=== PATIENT | male | born 1970 | race Caucasian/White ===

== ENCOUNTER 2017-07-08 16:51 | Emergency (ER) | payer BC ==
[~2017-07-08] VITALS: Ht 180.3 cm; Wt 111.1 kg
[~2017-07-08 16:51] MED LIST: DICY20TA57; ENAL20TA PO; HYDR-2997 PO; HYDR-757 PO; MMT17NA NS; NF-ESOM40C PO; OMEP20CA6; ONDAN4ODT PO; SULF1TAB35 PO
--- OUTSIDE RECORDS SUMMARY | 2017-07-08 16:56 | XMS REPORT | Continuity of Care Document ---
Author Author [facility] Organization [facility] Address Unknown Phone Unavailable Allergies Active Description Code Type Severity Reaction Onset Reported/Identified Relationship to Patient Clinical Status Yes NKANo Known Allergies NKA Miscellaneous Allergy Mild N/A 12/07/2008 Medications There is no data. Problems Date Dx Coded Attending Type Code Diagnosis Diagnosed By 06/08/2014 Ot 790.5 06/08/2014 Ot 787.02 06/08/2014 Ot 789.00 06/08/2014 Ot 790.6 06/08/2014 Ot 574.20 06/08/2014 Ot V72.63 06/08/2014 Ot V74.8 06/08/2014 Ot 789.02 06/08/2014 Ot V45.89 06/08/2014 Ot 603.9 06/08/2014 Ot 595.9 06/08/2014 Ot V72.83 06/08/2014 Ot V74.8 06/08/2014 Ot 595.9 06/08/2014 JAI HOPSON, ARISTIDES R Ot 785.1 06/08/2014 JAI HOPSON, ARISTIDES R Ot 786.59 06/23/2014 JAI HOPSON, ARISTIDES R Ot 784.92 12/13/2014 Ot 574.20 12/13/2014 Ot V72.63 12/13/2014 Ot V74.8 12/13/2014 Ot 789.02 12/13/2014 Ot V45.89 12/13/2014 Ot 603.9 12/13/2014 Ot 595.9 12/13/2014 Ot V72.83 12/13/2014 Ot V74.8 12/13/2014 Ot 595.9 12/13/2014 JAI HOPSON, ARISTIDES R Ot 785.1 12/13/2014 JAI HOPSON, ARISTIDES R Ot 786.59 12/13/2014 JAI HOPSON, ARISTIDES R Ot 784.92 06/21/2015 Ot 603.9 06/21/2015 Ot 595.9 06/21/2015 Ot V72.83 06/21/2015 Ot V74.8 06/21/2015 Ot 595.9 06/21/2015 ARISTIDES VERGARA MD Ot 785.1 06/21/2015 JAI HOPSON, ARISTIDES R Ot 786.59 06/21/2015 ARISTIDES VERGARA MD Ot 784.92 08/28/2015 Ot 603.9 HYDROCELE NOS 08/28/2015 Ot 595.9 CYSTITIS NOS 08/28/2015 Ot V72.83 EXAM PRE- OPERATIVE NEC 08/28/2015 Ot V74.8 SCREEN- BACTERIAL DIS NEC 08/28/2015 Ot 595.9 CYSTITIS NOS 08/28/2015 ARISTIDES VERGARA MD Ot 785.1 PALPITATIONS 08/28/2015 ARISTIDES VERGARA MD Ot 786.59 CHEST PAIN NEC 08/28/2015 ARISTIDES VERGARA MD Ot 784.92 JAW PAIN 08/28/2015 ARISTIDES VERGARA MD Ot M26.62 ARTHRALGIA OF TEMPOROMANDIBULAR JOINT 10/07/2015 GRACY LAWS APRN Ot N50.8 OTHER SPECIFIED DISORDERS OF MALE GENITA 10/09/2015 GRACY LAWS FIELD MACHINIST Ot N50.8 OTHER SPECIFIED DISORDERS OF MALE GENITA 03/13/2016 Ot 603.9 HYDROCELE NOS 03/13/2016 Ot 595.9 CYSTITIS NOS 03/13/2016 Ot V72.83 EXAM PRE- OPERATIVE NEC 03/13/2016 Ot V74.8 SCREEN- BACTERIAL DIS NEC 03/13/2016 Ot 595.9 CYSTITIS NOS 03/13/2016 ARISTIDES VERGARA MD Ot 785.1 PALPITATIONS 03/13/2016 ARISTIDES VERGARA MD Ot 786.59 CHEST PAIN NEC 03/13/2016 ARISTIDES VERGARA MD Ot 784.92 JAW PAIN 03/13/2016 ARISTIDES VERGARA MD Ot M26.62 ARTHRALGIA OF TEMPOROMANDIBULAR JOINT 10/21/2016 Ot 603.9 HYDROCELE NOS 10/21/2016 Ot 595.9 CYSTITIS NOS 10/21/2016 Ot V72.83 EXAM PRE- OPERATIVE NEC 10/21/2016 Ot V74.8 SCREEN- BACTERIAL DIS NEC 10/21/2016 Ot 595.9 CYSTITIS NOS 10/21/2016 ARISTIDES VERGARA MD Ot 785.1 PALPITATIONS 10/21/2016 ARISTIDES VERGARA MD Ot 786.59 CHEST PAIN NEC 10/21/2016 ARISTIDES VERGARA MD Ot 784.92 JAW PAIN 10/21/2016 ARISTIDES VERGARA MD Ot M26.62 ARTHRALGIA OF TEMPOROMANDIBULAR JOINT Procedures There is no data. Results There is no data. Encounters ACCT No. Visit Date/Time Discharge Status Pt. Type Provider Facility Loc./Unit Complaint [id number] 10/07/2015 20:22:00 10/07/2015 22:32:00 DIS Emergency GRACY LAWS APRN [facility] ER GROIN PAIN [id number] 06/21/2015 07:42:00 06/21/2015 23:59:59 CLS Outpatient ARISTIDES VERGARA MD [facility] RAD PERSISTENT PAIN [id number] 06/08/2014 14:28:00 06/08/2014 23:59:59 CLS Outpatient ARISTIDES VERGARA MD [facility] RAD PAIN LT TMJ RAIDIATING TO EAR [id number] 10/01/2013 13:38:00 10/01/2013 23:59:59 CLS Outpatient ARISTIDES VERGARA MD [facility] RAD PECTORAL PAIN [id number] 05/13/2013 14:22:00 05/13/2013 23:59:59 CLS Outpatient ARISTIDES VERGARA MD [facility] CARD PALPITATION [id number] 09/11/2012 08:20:00 09/11/2012 23:59:59 CLS Outpatient [id number] 06/08/2014 14:28:00 Document Registration [id number] 06/08/2014 14:28:00 Document Registration [id number] 06/08/2014 14:28:00 Document Registration [id number] 09/18/2011 10:10:00 Document Registration [id number] 09/17/2011 13:55:00 Document Registration [id number] 08/13/2011 11:57:00 Document Registration [id number] 12/19/2009 15:28:00 Document Registration [id number] 07/27/2009 08:02:00 Document Registration [id number] 05/31/2009 10:05:00 Document Registration [id number] 05/11/2009 09:19:00 Document Registration
[2017-07-08 17:15] LABS: BASOPHILS % (AUTO) 0 % (0-10); EOSINOPHILS # (AUTO) 0.3 10^3/uL (0.0-0.3); EOSINOPHILS % (AUTO) 4 % (0-10); HEMATOCRIT 45 % (40-54); HEMOGLOBIN 15.9 G/DL (13.3-17.7); LYMPHOCYTES # (AUTO) 1.8 X 10^3 (1.0-4.0); LYMPHOCYTES % (AUTO) 21 % (12-44); MEAN CORPUSCULAR HEMOGLOBIN 30 PG (25-34); MEAN CORPUSCULAR HGB CONC 36 G/DL (32-36); MEAN CORPUSCULAR VOLUME 84 FL (80-99); MONOCYTES # (AUTO) 0.6 X 10^3 (0.0-1.0); MONOCYTES % (AUTO) 7 % (0-12); NEUTROPHILS # (AUTO) 6.1 X 10^3 (1.8-7.8); NEUTROPHILS % (AUTO) 68 % (42-75); PLATELET COUNT 313 10^3/uL (130-400); RED BLOOD COUNT 5.33 10^6/uL (4.35-5.85); RED CELL DISTRIBUTION WIDTH 12.8 % (10.0-14.5); WHITE BLOOD COUNT 8.9 10^3/uL (4.3-11.0)
[2017-07-08] MEDS ORDERED: ASPIRIN 81 MG CHEW (CHILDREN'S ASA) PO ONE (17:15)
[2017-07-08] MEDS ORDERED: NITROGLYCERIN 0.4 MG SL TABS BTL 25'S SL PRN (17:15)
[2017-07-08 17:26] LABS: INR 0.9 (0.8-1.4); PROTHROMBIN TIME PATIENT 12.2 SEC (12.2-14.7)
--- NOTE | 2017-07-08 17:28 | Diagnostic Imaging Report ---
INDICATION: Chest pain. TECHNIQUE: Portable chest at 5:18 p.m. FINDINGS: Heart and mediastinum are normal. Lungs are clear. There are no effusions or pneumothoraces. IMPRESSION: Negative chest. Dictated by: Dictated on workstation # [id number]
[2017-07-08] MEDS ORDERED: LIDOCAINE 2% VISCOUS 15 ML UDC PO ONE (17:30)
[2017-07-08] MEDS ORDERED: ANTACID SUSP 30 ML UDC (MYLANTA) PO ONE (17:30)
[2017-07-08 17:36] LABS: ALANINE AMINOTRANSFERASE 30 U/L (0-55); ALBUMIN 4.5 GM/DL (3.2-4.5); ALKALINE PHOSPHATASE 60 U/L (40-136); BILIRUBIN,TOTAL 0.4 MG/DL (0.1-1.0); BUN/CREATININE RATIO 17; CALCIUM 9.2 MG/DL (8.5-10.1); CARBON DIOXIDE 25 MMOL/L (21-32); CHLORIDE 107 MMOL/L (98-107); CREATININE SERUM 0.88 MG/DL (0.60-1.30); GFR ESTIMATED > 60; GLUCOSE 91 MG/DL (70-105); MAGNESIUM 2.3 MG/DL (1.8-2.4); POTASSIUM 3.9 MMOL/L (3.6-5.0); SODIUM 140 MMOL/L (135-145); TOTAL PROTEIN 7.2 GM/DL (6.4-8.2)
--- NOTE | 2017-07-08 17:40 | ED Chest Pain ---
General Chief Complaint: Chest Pain Stated Complaint: CHEST PAIN Nursing Triage Note: PT TO ED FROM [facility]. Nursing Sepsis Screen: No Definite Risk Source: patient Exam Limitations: no limitations (ERIKA FERREIRA MD) History of Present Illness Date Seen by Provider: Jul 08, 2017 Time Seen by Provider: 16:57 Initial Comments This 46-year-old gentleman presents to the emergency room as referred by the [facility] for chest pain. He complains of intermittent mild chest pain for the past 3 days. However, the pain became much more intense at 15:30 today. He rates the pain 5/10 at its worst. It is now 2/10. The pain is a burning sensation and is central beneath the sternum and to the left of the sternum. He does have a history of hiatal hernia and acid reflux. He took Nexium this morning which did not resolve the pain. She denies any associated symptoms such as shortness of breath, nausea/vomiting, lightheadedness, fever, or cough. He notes it may be a little worse with deep breathing but he has not identified any other exacerbating or alleviating factors. He denies any known history of heart disease. He does not smoke and only occasionally drinks alcohol. He does have a family history of heart disease in his father who had bypass surgery in his 60s. His father also had atrial fibrillation. Patient also has a recurrent rash on his torso which she treats with triamcinolone cream. (ERIKA FERREIRA MD) Allergies and Home Medications Allergies Coded Allergies: No Known Allergies (Unverified Allergy, Mild, 12/07/08) Home Medications Enalapril Maleate 20 Mg Tablet, 20 MG PO DAILY, (Reported) Hydrocodone/Acetaminophen 1 Each Tablet, 1 EACH PO Q4H PRN for PAIN Prescribed by: GRACY LAWS on 10/07/152212 Mometasone Furoate 17 Gm [place], 1 SPRAY NS UD, (Reported) Sulfamethoxazole/Trimethoprim 1 Each Tablet, 1 EACH PO BID Prescribed by: GRACY LAWS on 10/07/15 213 Patient Home Medication List Home Medication List Reviewed: Yes (ERIKA FERREIRA MD) Home Medication List Reviewed: Yes (ROSA MAZARIEGOS MD) Review of Systems Constitutional: no symptoms reported EENTM: No Symptoms Reported Respiratory: See HPI Cardiovascular: See HPI Gastrointestinal: See HPI Genitourinary: No Symptoms Reported Musculoskeletal: no symptoms reported Skin: no symptoms reported Psychiatric/Neurological: No Symptoms Reported Endocrine: No Symptoms Reported (ERIKA FERREIRA MD) Past Eovykfe-Lfjxop-Annuit Hx Patient Social History Alcohol Use: Occasionally Uses Recreational Drug Use: No Smoking Status: Never a Smoker Recent Foreign Travel: No Contact w/Someone Who Travel: No Recent Infectious Disease Expo: No (ERIKA FERREIRA MD) Seasonal Allergies Seasonal Allergies: Yes (ERIKA FERREIRA MD) Surgeries History of Surgeries: Yes Surgeries: Adenoidectomy, Gallbladder, Tonsillectomy (ERIKA FERREIRA MD) Respiratory History of Respiratory Disorde: No (ERIKA FERREIRA MD) Cardiovascular History of Cardiac Disorders: Yes Cardiac Disorders: Hypertension (ERIKA FERREIRA MD) Neurological History of Neurological Disord: No (ERIKA FERREIRA MD) Reproductive System Hx Reproductive Disorders: No Sexually Transmitted Disease: No (ERIKA FERREIRA MD) Genitourinary History of Genitourinary Disor: No (ERIKA FERREIRA MD) Gastrointestinal History of Gastrointestinal Di: Yes Gastrointestinal Disorders: Hiatal Hernia, Irritable Bowel (ERIKA FERREIRA MD) Musculoskeletal History of Musculoskeletal Dis: No (ERIKA FERREIRA MD) Endocrine History of Endocrine Disorders: No (ERIKA FERREIRA MD) HEENT History of HEENT Disorders: No (ERIKA FERREIRA MD) Cancer History of Cancer: No (ERIKA FERREIRA MD) Psychosocial History of Psychiatric Problem: No (ERIKA FERREIRA MD) Integumentary History of Skin or Integumenta: Yes (Recurrent rash) (ERIKA FERREIRA MD) Family Medical History Significant Family History: Heart Disease (A-Fib), CAD Over 55 Years Old (ERIKA FERREIRA MD) Physical Exam Vital Signs Vital Signs - First Documented 07/08/17 16:55 Temp 98.1 Pulse 71 Resp 18 B/P (MAP) 131/91 (104) Pulse Ox 96 O2 Delivery Room Air (ROSA MAZARIEGOS MD) Vital Signs Capillary Refill : Less Than 3 Seconds (ERIKA FERREIRA MD) General Appearance: No Apparent Distress, WD/WN HEENT: PERRL/EOMI, Normal ENT Inspection Neck: Normal Inspection Respiratory: Chest Non Tender, Lungs Clear, Normal Breath Sounds, No Accessory Muscle Use, No Respiratory Distress Cardiovascular: Regular Rate, Rhythm, No Edema, No Murmur, Normal Peripheral Pulses Gastrointestinal: Normal Bowel Sounds, Non Tender, Soft Extremity: Normal Capillary Refill, Normal Inspection, Non Tender, No Calf Tenderness, No Pedal Edema Neurologic/Psychiatric: Alert, Oriented x3, No Motor/Sensory Deficits, Normal Mood/Affect, central supply tech II-XII Norm as Tested Skin: Normal Color, Warm/Dry (ERIKA FERREIRA MD) Progress/Results/Core Measures Results/Orders Lab Results Laboratory Tests Test 07/08/17 17:09 07/08/17 20:09 Range/Units White Blood Count 8.9 4.3-11.0 10^3/uL Red Blood Count 5.33 4.35-5.85 10^6/uL Hemoglobin 15.9 13.3-17.7 G/DL Hematocrit 45 40-54 % Mean Corpuscular Volume 84 80-99 FL Mean Corpuscular Hemoglobin 30 25-34 PG Mean Corpuscular Hemoglobin Concent 36 32-36 G/DL Red Cell Distribution Width 12.8 10.0-14.5 % Platelet Count 313 130-400 10^3/uL Mean Platelet Volume 10.0 7.4-10.4 FL Neutrophils (%) (Auto) 68 42-75 % Lymphocytes (%) (Auto) 21 12-44 % Monocytes (%) (Auto) 7 0-12 % Eosinophils (%) (Auto) 4 0-10 % Basophils (%) (Auto) 0 0-10 % Neutrophils # (Auto) 6.1 1.8-7.8 X 10^3 Lymphocytes # (Auto) 1.8 1.0-4.0 X 10^3 Monocytes # (Auto) 0.6 0.0-1.0 X 10^3 Eosinophils # (Auto) 0.3 0.0-0.3 10^3/uL Basophils # (Auto) 0.0 0.0-0.1 10^3/uL Prothrombin Time 12.2 12.2-14.7 SEC INR Comment 0.9 0.8-1.4 Activated Partial Thromboplast Time 26 24-35 SEC Sodium Level 140 135-145 MMOL/L Potassium Level 3.9 3.6-5.0 MMOL/L Chloride Level 107 98-107 MMOL/L Carbon Dioxide Level 25 21-32 MMOL/L Anion Gap 8 5-14 MMOL/L Blood Urea Nitrogen 15 7-18 MG/DL Creatinine 0.88 0.60-1.30 MG/DL Estimat Glomerular Filtration Rate > 60 BUN/Creatinine Ratio 17 Glucose Level 91 70-105 MG/DL Calcium Level 9.2 8.5-10.1 MG/DL Magnesium Level 2.3 1.8-2.4 MG/DL Total Bilirubin 0.4 0.1-1.0 MG/DL Aspartate Amino Transf (AST/SGOT) 25 5-34 U/L Alanine Aminotransferase (ALT/SGPT) 30 0-55 U/L Alkaline Phosphatase 60 40-136 U/L Myoglobin 31.8 27.1 10.0-92.0 NG/ML Troponin I < 0.30 < 0.30 <0.30 NG/ML Total Protein 7.2 6.4-8.2 GM/DL Albumin 4.5 3.2-4.5 GM/DL (ROSA MAZARIEGOS MD) My Orders Orders - ROSA MAZARIEGOS MD Ekg Tracing (07/08/17 20:41) (ROSA MAZARIEGOS MD) Medications Given in ED Current Medications Medications Dose Ordered Sig/Leo Route Start Time Stop Time Status Last Admin Dose Admin Al Hydrox/Mg Hydrox/Simethicone 30 ml ONCE ONCE PO 07/08/17 17:30 07/08/17 17:31 DC 07/08/17 17:52 30 ML Aspirin 324 mg ONCE ONCE PO 07/08/17 17:15 07/08/17 17:16 DC 07/08/17 17:16 324 MG Lidocaine HCl 15 ml ONCE ONCE PO 07/08/17 17:30 07/08/17 17:31 DC 07/08/17 17:52 15 ML Nitroglycerin 0.4 mg UD PRN SL 07/08/17 17:15 07/08/17 17:14 0.4 MG (ROSA MAZARIEGOS MD) Vital Signs/I&O Vital Sign - Last 12Hours 07/08/17 16:55 Temp 98.1 Pulse 71 Resp 18 B/P (MAP) 131/91 (104) Pulse Ox 96 O2 Delivery Room Air (ROSA MAZARIEGOS MD) Blood Pressure Mean: 104 Progress Note : Time: 18:10 Progress Note Workup in the emergency room was unremarkable to this point. Patient's pain was dissipating. He was given a GI cocktail and had no pain afterward, but his pain was minimal prior to the GI cocktail anyway. I discussed options with the patient including admission versus cardiac rule out and outpatient follow-up. Patient is agreeable. A troponin will be drawn at 20:00 and patient will be dismissed home as long as troponin is negative and he remains pain-free. Care of this patient is being transitioned to Dr. Mazariegos at this time. (ERIKA FERREIRA MD) Progress Note : Progress Note 1820: I have assumed care of the patient from Dr. Lomeli pending repeat laboratory testing. Patient presents with intermittent chest pain over the last couple of weeks. He believes that it may be related to reflux disease but was worse today starting at about 330 p.m. Pain is currently gone. He did receive GI cocktail earlier and his minimal pain at that time has completely resolved since. We will recheck troponin and myoglobin as well as EKG at nearly 6 are marked. These are negative and patient can be discharged. 2042: Repeat EKG done. Repeat troponin and myoglobin negative. I will discuss the case with Dr. Quiles and have follow-up. Discharged home with return precautions. Patient verbalize understanding instructions and agreement with plan. (ROSA MAZARIEGOS MD) ECG Initial ECG Impression Date: Jul 08, 2017 Initial ECG Impression Time: 16:57 Initial ECG Rate: 70 Initial ECG Rhythm: Normal Sinus Initial ECG Intervals: Normal Initial ECG Impression: Normal Comment Normal sinus rhythm with no ST elevation or depression. No abnormal intervals or axis deviation. (ERIKA FERREIRA MD) EKG : EKG Time: 20:43 Rate: 67 Rhythm: Normal Sinus ECG Comparisson: Unchanged ECG Impression: Normal Comment Sinus rhythm with normal axis. No evidence of ST elevation OR. No changes from previous done earlier today. Interpreted by me. (ROSA MAZARIEGOS MD) Diagnostic Imaging Diagonstic Imaging: Xray Plain Films/CT/US/NM/MRI: chest Comments Chest x-ray viewed by me and report reviewed. See report below: NAME: [facility] REC#: [id number] PT STATUS: REG ER : 1970 PHYSICIAN: ERIKA FERREIRA MD ADMIT DATE: 07/08/17/ER Draft Date of Exam:07/08/17 CHEST 1 VIEW, AP/PA ONLY INDICATION: Chest pain. TECHNIQUE: Portable chest at 5:18 p.m. FINDINGS: Heart and mediastinum are normal. Lungs are clear. There are no effusions or pneumothoraces. IMPRESSION: Negative chest. Dictated on workstation # [id number] Dict: 07/08/17 1722 Trans: 07/08/17 1728 [id number] [id number] Interpreted by: ROSA JUSTICE MD (ERIKA FERREIRA MD) Departure Impression Impression: Primary Impression: Chest pain Qualified Codes: R07.9 - Chest pain, unspecified Disposition: HOME, SELF-CARE Condition: Improved Departure-Patient Inst. Decision time for Depature: 20:53 (ROSA MAZARIEGOS MD) Referrals: PALMIRA QUILES MD [facility] ARISTIDES VERGARA MD (PCP/Family) Primary Care Physician Patient Instructions: Chest Pain (DC) Add. Discharge Instructions: All discharge instructions reviewed with patient and/or family. Voiced understanding. Continue home medications as directed. You should start a chewable baby aspirin daily. Call Dr. Quiles's office in the morning and he will see you same day. Let them know that the case was discussed with him and he wants to see you same day and they will schedule you. Return for worse pain, fever, vomiting, weakness, breathing problems or other concerns as needed. Copy Copies To 1: [facility]ES [facility] Jul 08, 2017 17:40 ROSA MAZARIEGOS MD Jul 08, 2017 20:41
[2017-07-08 17:43] LABS: MYOGLOBIN SERUM 31.8 NG/ML (10.0-92.0)
[2017-07-08 20:37] LABS: MYOGLOBIN SERUM 27.1 NG/ML (10.0-92.0)
[2017-07-08 21:00] VITALS: BP 136/88
== END 2017-07-08 21:00 | disposition home or self-care (01) ==
LOC: EDUNIT# 16:51 → ER 16:52
DX: R07.89 Other chest pain (principal); K21.9 Gastro-esophageal reflux disease without esophagitis; Z87.19 Personal history of other diseases of the digestive system; Z82.49 Family history of ischemic heart disease and other diseases of the circulatory system; Z90.89 Acquired absence of other organs
CPT/HCPCS: 36415; 71045; 80053; 83735; 83874; 84484; 85025; 85610; 85730; 93005; 93041

== ENCOUNTER → 2017-08-05 | Outpatient (CLI) | payer BC | LOC: CARD 08:46 | PROVIDERS: ATTEND Internal Medicine Cardiovascular Disease | DX: R07.89 Other chest pain (principal); I10 Essential (primary) hypertension; K21.9 Gastro-esophageal reflux disease without esophagitis; E66.8 Other obesity | CPT/HCPCS: 93306; 93351 ==

== ENCOUNTER 2021-06-27 14:14 | Emergency (ER) | payer BC ==
[~2021-06-27] VITALS: Ht 180 cm; Wt 113.6 kg
[~2021-06-27 14:14] MED LIST changes: -ENAL20TA PO; +ENAL20TA16 PO; +HYDR-4226 PO; -HYDR-757 PO; -SULF1TAB35 PO; +SULF1TAB38 PO
--- NOTE | 2021-06-27 14:39 | ED Lower Extremity ---
General Chief Complaint: Lower Extremity Stated Complaint: L LEG PAIN Nursing Triage Note: AMB TO ED WITH C/O L LEG PAIN X 2 WEEKS. Source: patient Exam Limitations: no limitations History of Present Illness Date Seen by Provider: Jun 27, 2021 Time Seen by Provider: 14:37 Initial Comments Patient is a 50-year-old male who presents ED with left calf pain. Pain is located to his left medial upper calf. Woke up with pain this morning. De scribed as more as a dull achy pain with a sharp pain on palpation. History of varicose veins. No history of DVT. Not currently on a blood thinner. Denies any trauma, redness, swelling, bruising. Was recommended come to ED rule out DVT. No recent travels or surgeries. Allergies and Home Medications Allergies Coded Allergies: No Known Allergies (Unverified Allergy, Mild, 12/07/08) Patient Home Medication List Home Medication List Reviewed: Yes Enalapril Maleate (Enalapril Maleate) 20 Mg Tablet, 20 MG PO DAILY, (Reported) Entered as Reported by: PAULA HERNANDEZ on 10/07/152029 Hydrocodone/Acetaminophen (Hydrocodone/Acetaminophen 5 MG/325 MG TAB) 1 Each Tablet, 1 EACH PO Q4H PRN for PAIN Prescribed by: GRACY LAWS on 10/07/15 221 Mometasone Furoate (Nasonex) 17 Gm [place], 1 SPRAY NS UD, (Reported) Entered as Reported by: CARROL BARILLAS on 09/17/11 1411 Sulfamethoxazole/Trimethoprim (Bactrim Ds Tablet) 1 Each Tablet, 1 EACH PO BID Prescribed by: GRACY LAWS on 10/07/15 2133 Review of Systems Constitutional: No chills, No dizziness, No fever, No malaise EENTM: No blurred vision, No double vision, No eye pain, No throat pain Respiratory: No cough, No dyspnea on exertion, No orthopnea Cardiovascular: No chest pain, No edema Gastrointestinal: No abdominal pain, No diarrhea, No nausea, No vomiting Genitourinary: No decreased output, No discharge Musculoskeletal: No back pain, No joint pain; muscle pain Skin: No change in color, No change in hair/nails Past Gctfwld-Ieblnj-Lhacfz Hx Patient Social History Tobacco Use?: No Substance use?: No Alcohol Use?: Yes Alcohol Frequency: Rarely Pt feels they are or have been: No Immunizations Up To Date First/Initial COVID19 Vaccinat: JUNE Second COVID19 Vaccination Tereso: JULY COVID19 Vaccine Back Gray Cloth Washer: FLEX Seasonal Allergies Seasonal Allergies: Yes Past Medical History Surgeries: Yes Adenoidectomy, Gallbladder, Tonsillectomy Respiratory: No Cardiac: Yes Hypertension Neurological: No Reproductive Disorders: No Sexually Transmitted Disease: No Genitourinary: No Gastrointestinal: Yes Hiatal Hernia, Irritable Bowel Musculoskeletal: No Endocrine: No HEENT: No Cancer: No Psychosocial: No Integumentary: Yes (Recurrent rash) Blood Disorders: No Family Medical History Heart Disease, CAD Over 55 Years Old Physical Exam Vital Signs Vital Signs - First Documented 06/27/21 14:20 Temp 37.0 Pulse 89 Resp 18 B/P (MAP) 184/106 (132) Pulse Ox 98 O2 Delivery Room Air Capillary Refill : Less Than 3 Seconds Height, Weight, BMI Height: 5'11.00" Weight: 245lbs. oz. 111.719108ix; 35.00 BMI Method:Stated General Appearance: WD/WN, no apparent distress HEENT: PERRL/EOMI, normal ENT inspection, TMs normal, pharynx normal Neck: non-tender, full range of motion, supple Cardiovascular: regular rate, rhythm, no edema, no gallop, no JVD, no murmur Respiratory: chest non-tender, lungs clear, normal breath sounds, no respiratory distress, no accessory muscle use Gastrointestinal: normal bowel sounds, non tender, soft, no organomegaly Back: normal inspection, no CVA tenderness Legs: left leg soft tissue tenderness Neurologic/Tendon: normal sensation, normal motor functions, normal tendon f unctions Neurologic/Psychiatric: cork sorter II-XII nml as tested, no motor/sensory deficits, alert, normal mood/affect, oriented x 3, other (Neurovascularly intact bilateral lower extremities) Skin: other (Varicose veins lower extremity bilateral.) Progress/Results/Core Measures Results/Orders My Orders Orders - ZARINA STEELE Venous Lower Ext Lt (06/27/21 14:36) Vital Signs/I&O 06/27/21 06/27/21 14:20 16:10 Temp 37.0 37.0 Pulse 89 89 Resp 18 18 B/P (MAP) 184/106 (132) 184/106 Pulse Ox 98 98 O2 Delivery Room Air Room Air Blood Pressure Mean: 132 Departure Communication (Admissions) Ultrasound of the left leg negative for DVT. No erythema, warmth. No fluctuant mass. No knee tenderness. No specific injury. Symptoms may be secondary to venous stasis. Recommend anti-inflammatories. Does wear compression socks. Outpatient follow-up. If worsening symptoms return back to ED. No evidence of cellulitis. +2 dorsalis pedis bilateral Impression Primary Impression: Leg pain Disposition: 01 HOME, SELF-CARE Condition: Stable Departure-Patient Inst. Decision time for Depature: 15:54 Referrals: ЕЛЕНА HARRY MD (PCP/Family) Primary Care Physician Patient Instructions: Leg Muscle Strain ED ZARINA STEELE Jun 27, 2021 14:38
--- NOTE | 2021-06-27 15:44 | Diagnostic Imaging Report ---
PROCEDURE: US left lower extremity venous. TECHNIQUE: Multiple Real-time grayscale images were obtained over the left lower extremity in various projections. Additional duplex Doppler and color Doppler images were also obtained. INDICATION: Left leg pain. FINDINGS: There is no evidence of left lower extremity DVT. The left lower extremity deep venous system shows normal compressibility with normal response to augmentation and Valsalva. No fluid collection or mass is detected. IMPRESSION: No evidence of left lower extremity DVT. Dictated by: Dictated on workstation # [id number]
[2021-06-27 16:10] VITALS: BP 184/106
== END 2021-06-27 16:10 | disposition home or self-care (01) ==
LOC: EDUNIT# 14:14 → ER 14:16
DX: M79.605 Pain in left leg (principal)

== ENCOUNTER → 2022-01-17 | Outpatient (CLI) | payer BC ==
--- NOTE | 2022-01-17 17:18 | Diagnostic Imaging Report ---
ABDOMEN/KUB 1VIEW INDICATION: Abdominal pain COMPARISON: None available. TECHNIQUE: Supine AP view of the abdomen FINDINGS: Nonobstructive bowel gas pattern. A moderate amount of colonic stool is present. Cholecystectomy clips are noted. Phlebolith is noted in the left lower hemipelvis. No other abnormal soft tissue mineralizations. Mild degenerative arthritis of the hips. IMPRESSION: Moderate volume of colonic stool. Dictated by: Dictated on workstation # [id number]
== END ==
LOC: RAD 13:56
PROVIDERS: ATTEND Family Medicine
DX: R10.9 Unspecified abdominal pain (principal); R82.994 Hypercalciuria
CPT/HCPCS: 74018

== ENCOUNTER → 2023-03-25 | Outpatient (CLI) | payer BC ==
[~2023-03-25] MED LIST changes: +ENAL-70 PO; -ENAL20TA16 PO; +REGADENOSON 0.4 MG/5 ML SYR IV ONE
[2023-03-25] MEDS: CATHETER FLUSH 10 ML SYR IVP PRN ×2 (07:45→09:08)
[2023-03-25 09:04] VITALS: BP 142/84
--- NOTE | 2023-03-27 12:13 | STRESS TEST ---
DATE OF SERVICE: 03/25/2023 RESTING AND POST REGADENOSON TECHNETIUM-99M TETROFOSMIN SPECT CT IMAGING ORDERING PHYSICIAN: Dr. Quiles. PRIMARY PHYSICIAN: Dr. Boyce. CLINICAL DIAGNOSIS: Chest discomfort. Baseline images were carried out after injection of 10.99 mCi of technetium-99m tetrofosmin. This was followed by 0.4 mg regadenoson and 32 mCi of technetium-99m tetrofosmin for stress imaging. Electrocardiogram showed sinus rhythm at baseline. It did not change significantly with regadenoson infusion. The patient tolerated the procedure well. Review of images at rest and following stress does not indicate any significant perfusion defects consistent with myocardial ischemia or infarction. Gated images show normal global left ventricular systolic function with normal regional wall motion. Left ventricular ejection fraction is calculated to be 67%. CONCLUSIONS: 1. No evidence of any significant myocardial ischemia or infarction on this study. 2. Normal regional wall motion. 3. Normal global left ventricular systolic function with a calculated ejection fraction of 67%. Job ID: [id number] DocumentID: [id number] Dictated Date: 03/27/2023 09:34:47 Prop Attendant Date: 03/27/2023 12:12:00 Dictated By: PALMIRA QUILES MD; ZUNILDA; FACP; FACC;
== END ==
LOC: CARD 07:15
PROVIDERS: ATTEND Internal Medicine Cardiovascular Disease
DX: R07.89 Other chest pain (principal)
CPT/HCPCS: 78452; 93017; A9502

== ENCOUNTER 2023-04-03 20:22 | Emergency (ER) | payer BC ==
[~2023-04-03] VITALS: Ht 177.8 cm; Wt 111.0 kg
[~2023-04-03 20:22] MED LIST changes: -REGADENOSON 0.4 MG/5 ML SYR IV ONE
[2023-04-03] MEDS ORDERED: NS IV 1000 ML 1,000 ML IV STA (20:42)
[2023-04-03] MEDS ORDERED: ONDANSETRON INJECTION 4 MG/2 ML (SDV) IVP ONE (20:45)
[2023-04-03] MEDS ORDERED: PANTOPRAZOLE INJECTION 40 MG VIAL IV ONE (20:45)
--- NOTE | 2023-04-03 20:53 | ED Abdominal Pain ---
General Chief Complaint: Abdominal/GI Problems Stated Complaint: NAUSEATED, ABD PAIN Nursing Triage Note: PT AMB TO ED BY POV WITH C/O NAUSEA AND GENERALIZED ABD PAIN X 1 HR. Source of Information: Patient Exam Limitations: No Limitations History of Present Illness Date Seen by Provider: Apr 03, 2023 Time Seen by Provider: 20:30 Initial Comments Here with report of generalized abdominal pain as well as nausea. States that he is not able to throw up due to hiatal hernia repair surgery. He did take some nane-nnr-ldnvrit antacid tablet but that has not helped he did not feel like he could stomach any other medicine currently. Does have history of IBS as well. Reports some constipation but feels rumbles like he is going to have diarrhea. Did have diarrhea a few days ago and took an Imodium and has not had a bowel movement since. Denies dysuria. Denies fever or chills. Has been traveling and states that he gets some bowel stress due to traveling. Timing/Duration: 1 Hour Severity/Quality: Moderate Location: Generalized Abdomen Radiation: No Radiation Activities at Onset: None Modifying Factors: Improves With Antacids Associated Symptoms: No Back Pain, No Chest Pain, No Fever/Chills; Nausea/Vomiting; No Shortness of Air, No Weakness Allergies and Home Medications Allergies Coded Allergies: NKANo Known Allergies (Unverified Allergy, Mild, 12/07/08) Patient Home Medication List Home Medication List Reviewed: Yes Enalapril Maleate (Enalapril Maleate) 20 Mg Tablet, 20 MG PO DAILY, (Reported) Entered as Reported by: PAULA HERNANDEZ on 10/07/152029 Hydrocodone/Acetaminophen (Hydrocodone/Acetaminophen 5 MG/325 MG TAB) 1 Each Tablet, 1 EACH PO Q4H PRN for PAIN Prescribed by: GRACY LAWS on 10/07/152212 Mometasone Furoate (Nasonex) 17 Gm [place], 1 SPRAY NS UD, (Reported) Entered as Reported by: CARROL BARILLAS on 09/17/11 1411 Sulfamethoxazole/Trimethoprim (Bactrim Ds Tablet) 1 Each Tablet, 1 EACH PO BID Prescribed by: GRACY LAWS on 10/07/15 2133 Review of Systems Review of Systems Constitutional: No chills, No fever EENTM: Nose Congestion; No Throat Pain Respiratory: Cough (Mild occasional); Denies Shortness of Air Cardiovascular: Denies Chest Pain, Denies Edema Gastrointestinal: Abdominal Pain, Constipated, Diarrhea, Nausea; Denies Vomiting Genitourinary: No Symptoms Reported Musculoskeletal: no symptoms reported Skin: no symptoms reported Psychiatric/Neurological: No Symptoms Reported Past Yyyajgi-Nsoocn-Xweogs Hx Patient Social History Tobacco Use?: No Use of E-Cig and/or Vaping dev: No Substance use?: No Alcohol Use?: Yes Alcohol Frequency: Couple times a week Pt feels they are or have been: No Immunizations Up To Date Influenza Vaccine Up-to-Date: No; Not Current First/Initial COVID19 Vaccinat: June COVID19 Vaccination Tereso: July COVID19 Vaccination Date: MAR Seasonal Allergies Seasonal Allergies: Yes Past Medical History Surgery/Hospitalization HX: HIATAL HERNIA REPAIR, LIZ IBS Surgeries: Yes Adenoidectomy, Gallbladder, Tonsillectomy Respiratory: No Cardiac: Yes Hypertension Neurological: No Reproductive Disorders: No Sexually Transmitted Disease: No Genitourinary: No Gastrointestinal: Yes Hiatal Hernia, Irritable Bowel Musculoskeletal: No Endocrine: No HEENT: No Cancer: No Psychosocial: No Integumentary: Yes (Recurrent rash) Blood Disorders: No Family Medical History Reviewed Nursing Family Hx Heart Disease, CAD Over 55 Years Old Physical Exam Vital Signs Vital Signs - First Documented 04/03/23 20:30 Temp 36.1 Pulse 96 Resp 16 B/P (MAP) 134/94 (107) Pulse Ox 96 O2 Delivery Room Air Capillary Refill : Less Than 3 Seconds Height/Weight/BMI Height: 5'11.00" Weight: 245lbs. oz. [id number]; 35.00 BMI Method:Stated General Appearance: WD/WN, obese HEENT: PERRL/EOMI, pharynx normal Neck: full range of motion, supple Respiratory: lungs clear, normal breath sounds Cardiovascular: no murmur, tachycardia Gastrointestinal: non tender, soft, abnormal bowel sounds (Occasional rumbling); No guarding, No rebound Extremities: non-tender, normal inspection Back: normal inspection, no CVA tenderness, no vertebral tenderness Neurologic/Psychiatric: alert, oriented x 3 Skin: normal color, warm/dry Progress/Results/Core Measures Results/Orders Lab Results Laboratory Tests Test 04/03/23 20:30 04/03/23 20:40 Range/Units Urine Color YELLOW Urine Clarity CLEAR Urine pH 5.0 5-9 Urine Specific [place] >=1.030 1.016-1.022 Urine Protein 3+ H NEGATIVE Urine Glucose (UA) NEGATIVE NEGATIVE Urine Ketones TRACE H NEGATIVE Urine Nitrite NEGATIVE NEGATIVE Urine Bilirubin NEGATIVE NEGATIVE Urine Urobilinogen 0.2 < = 1.0 MG/DL Urine Leukocyte Esterase NEGATIVE NEGATIVE Urine RBC (Auto) NEGATIVE NEGATIVE Urine RBC 0-2 /HPF Urine WBC 0-2 /HPF Urine Squamous Epithelial Cells NONE /HPF Urine Crystals PRESENT H /LPF Urine Amorphous Sediment MOD EMI URATES H /LPF Urine Bacteria FEW H /HPF Urine Casts PRESENT /LPF Urine Hyaline Casts >50 H /LPF Urine Mucus LARGE H /LPF Urine Culture Indicated NO White Blood Count 10.9 4.3-11.0 10^3/uL Red Blood Count 5.55 H 4.30-5.52 10^6/uL Hemoglobin 16.3 13.3-17.7 g/dL Hematocrit 47 40-54 % Mean Corpuscular Volume 85 80-99 fL Mean Corpuscular Hemoglobin 29 25-34 pg Mean Corpuscular Hemoglobin Concent 35 32-36 g/dL Red Cell Distribution Width 12.6 10.0-14.5 % Platelet Count 349 130-400 10^3/uL Mean Platelet Volume 10.0 9.0-12.2 fL Immature Granulocyte % (Auto) 0 % Neutrophils (%) (Auto) 79 H 42-75 % Lymphocytes (%) (Auto) 16 12-44 % Monocytes (%) (Auto) 4 0-12 % Eosinophils (%) (Auto) 0 0-10 % Basophils (%) (Auto) 0 0-10 % Neutrophils # (Auto) 8.5 H 1.8-7.8 10^3/uL Lymphocytes # (Auto) 1.8 1.0-4.0 10^3/uL Monocytes # (Auto) 0.5 0.0-1.0 10^3/uL Eosinophils # (Auto) 0.0 0.0-0.3 10^3/uL Basophils # (Auto) 0.0 0.0-0.1 10^3/uL Immature Granulocyte # (Auto) 0.0 0.0-0.1 10^3/uL Sodium Level 143 135-145 MMOL/L Potassium Level 3.5 L 3.6-5.0 MMOL/L Chloride Level 108 H 98-107 MMOL/L Carbon Dioxide Level 20 L 21-32 MMOL/L Anion Gap 15 H 5-14 MMOL/L Blood Urea Nitrogen 13 7-18 MG/DL Creatinine 1.16 0.60-1.30 MG/DL Estimat Glomerular Filtration Rate 77 BUN/Creatinine Ratio 11 Glucose Level 118 H 70-105 MG/DL Calcium Level 9.1 8.5-10.1 MG/DL Corrected Calcium 8.5-10.1 MG/DL Total Bilirubin 0.6 0.1-1.0 MG/DL Aspartate Amino Transf (AST/SGOT) 20 5-34 U/L Alanine Aminotransferase (ALT/SGPT) 18 0-55 U/L Alkaline Phosphatase 62 40-136 U/L C-Reactive Protein High Sensitivity 0.36 0.00-0.50 MG/DL Total Protein 7.3 6.4-8.2 GM/DL Albumin 4.6 H 3.2-4.5 GM/DL Lipase 39 8-78 U/L My Orders Orders - ROSA MAZARIEGOS MD Ondansetron Injection (Ondansetron Inj (04/03/23 20:45) Ns Iv 1000 Ml (Ns Iv 1000 Ml) (04/03/23 20:42) Ed Iv/Invasive Line Start (04/03/23 20:42) Cbc And Automated Diff (04/03/23 20:42) Comprehensive Metabolic Panel (04/03/23 20:42) Hs C Reactive Protein (04/03/23 20:42) Lipase (04/03/23 20:42) Ua Culture If Indicated (04/03/23 20:42) Pantoprazole Injection (Pantoprazole Inj (04/03/23 20:45) Medications Given in ED Current Medications Medications Dose Ordered Sig/Leo Route Start Time Stop Time Status Last Admin Dose Admin Ondansetron HCl 4 mg ONCE ONCE IVP 04/03/23 20:45 04/03/23 20:46 DC 04/03/23 20:52 4 MG Pantoprazole 40 mg ONCE ONCE IV 04/03/23 20:45 04/03/23 20:46 DC 04/03/23 20:52 40 MG Vital Signs/I&O 04/03/23 20:30 Temp 36.1 Pulse 96 Resp 16 B/P (MAP) 134/94 (107) Pulse Ox 96 O2 Delivery Room Air Blood Pressure Mean: 107 Progress Progress Note : Progress Note Seen and evaluated. IV, labs including CBC, CMP, CRP and lipase as well as UA. Normal saline 1 L bolus ordered. Zofran 4 mg IV and Protonix 40 mg IV ordered for nausea. Monitor patient. Differential diagnosis includes viral GI disease, pancreatitis, electrolyte abnormality, dehydration 2130: CBC is grossly normal. No significant concerning findings on CMP and CRP as well as lipase are negative. UA does show concentration. 2137: Overall doing much better. I will send him home with prescription for ondansetron and we did discuss [id number] famotidine and MiraLAX. Discharged home with return precautions. Patient verbalized understanding instructions and agreement with plan. Departure Impression Primary Impression: Abdominal pain Qualified Codes: R10.84 - Generalized abdominal pain Additional Impressions: Nausea alone Constipation Qualified Codes: K59.00 - Constipation, unspecified Disposition: HOME, SELF-CARE Condition: Improved Departure-Patient Inst. Decision time for Depature: 21:39 Referrals: ЕЛЕНА HARRY MD (PCP/Family) Primary Care Physician Patient Instructions: Constipation, Adult ED, Nausea and Vomiting, Adult, Severe Abdominal Pain, Adult (DC) Add. Discharge Instructions: All discharge instructions reviewed with patient and/or family. Voiced understanding. You may use [id number] MiraLAX or the generic 1 capful daily as needed to keep stools soft. If you are having significant constipation, you may use 1 capful twice daily for 3 days and then 1 capful daily thereafter to keep stools in normal range. You may increase or decrease the dose to keep stools normal. Drink plenty of fluids by taking small sips frequently and use clear a light diet for the next 24 hours and then advance as tolerated. You may use [id number] Pepcid or the generic famotidine 20 mg daily to reduce acid reflux symptoms. Continue your Protonix. Return for worse pain, fever, vomiting, weakness, breathing problems or other concerns as needed. ROSA MAZARIEGOS MD Apr 03, 2023 20:52
[2023-04-03 21:02] LABS: BASOPHILS % (AUTO) 0 % (0-10); EOSINOPHILS % (AUTO) 0 % (0-10); HEMATOCRIT 47 % (40-54); HEMOGLOBIN 16.3 g/dL (13.3-17.7); LYMPHOCYTES # (AUTO) 1.8 10^3/uL (1.0-4.0); LYMPHOCYTES % (AUTO) 16 % (12-44); MEAN CORPUSCULAR HEMOGLOBIN 29 pg (25-34); MEAN CORPUSCULAR HGB CONC 35 g/dL (32-36); MEAN CORPUSCULAR VOLUME 85 fL (80-99); MONOCYTES # (AUTO) 0.5 10^3/uL (0.0-1.0); MONOCYTES % (AUTO) 4 % (0-12); NEUTROPHILS # (AUTO) 8.5 10^3/uL (1.8-7.8); NEUTROPHILS % (AUTO) 79 % (42-75); PLATELET COUNT 349 10^3/uL (130-400); WHITE BLOOD COUNT 10.9 10^3/uL (4.3-11.0)
[2023-04-03 21:12] LABS: ALANINE AMINOTRANSFERASE 18 U/L (0-55); ALBUMIN 4.6 GM/DL (3.2-4.5); ALKALINE PHOSPHATASE 62 U/L (40-136); BILIRUBIN,TOTAL 0.6 MG/DL (0.1-1.0); BUN/CREATININE RATIO 11; CALCIUM 9.1 MG/DL (8.5-10.1); CARBON DIOXIDE 20 MMOL/L (21-32); CHLORIDE 108 MMOL/L (98-107); CREATININE SERUM 1.16 MG/DL (0.60-1.30); GFR ESTIMATED 77; GLUCOSE 118 MG/DL (70-105); LIPASE 39 U/L (8-78); POTASSIUM 3.5 MMOL/L (3.6-5.0); SODIUM 143 MMOL/L (135-145); TOTAL PROTEIN 7.3 GM/DL (6.4-8.2)
[2023-04-03 21:13] LABS: BACTERIA,URINE FEW /HPF; BILIRUBIN,URINE NEGATIVE (NEGATIVE); CLARITY,URINE CLEAR; COLOR,URINE YELLOW; GLUCOSE, URINE (UA) NEGATIVE (NEGATIVE); KETONES,URINE TRACE (NEGATIVE); LEUKOCYTE ESTERASE ,URINE NEGATIVE (NEGATIVE); NITRITE,URINE NEGATIVE (NEGATIVE); PROTEIN,URINE 3+ (NEGATIVE); RBC,URINE 0-2 /HPF; WBC,URINE 0-2 /HPF
[2023-04-03 21:14] LABS: AMORPHOUS SEDIMENT,UR MOD AMOR URATES /LPF; HYALINE CASTS, URINE >50 /LPF
[2023-04-03 21:50] VITALS: BP 123/73
== END 2023-04-03 21:50 | disposition home or self-care (01) ==
LOC: EDUNIT# 20:22 → ER 20:25
DX: K59.00 Constipation, unspecified (principal); R11.0 Nausea; E66.9 Obesity, unspecified; Z68.35 Body mass index [BMI] 35.0-35.9, adult; Z90.49 Acquired absence of other specified parts of digestive tract
CPT/HCPCS: 36415; 80053; 81000; 83690; 85025; 86141; 96361; 96374; 96375